=== PATIENT | female | born 1980 | race African-American/Black ===

== ENCOUNTER 2019-06-04 05:18 | Day surgery (SDC) | payer OTHER ==
[2019-06-03 09:20] VITALS: BMI 27.1
[2019-06-04] MEDS ORDERED: BUPIVACAINE HCL/PF 0.5% (5 MG/ML) 30 ML VIAL IJ ONE (12:05)
[2019-06-04] MEDS ORDERED: PROPOFOL 20 ML ONE ×3 (12:28→13:28)
[2019-06-04] MEDS ORDERED: MIDAZOLAM HCL 2 MG/2 ML SINGLE DOSE VIAL ONE ×2 (12:28→13:28)
[2019-06-04] MEDS ORDERED: ROCURONIUM BROMIDE 50 MG/5 ML SYRINGE ONE ×2 (12:30→13:27)
--- NOTE | 2019-06-04 13:17 | HP ---
History & Physical Update - History History: No Change - Physical Physical: No Change - Assessment Assessment: No Change - Plan Plan: No Change (Consent signed and witnessed H&P unchanged from the one in the office)
[2019-06-04] MEDS ORDERED: IBUPROFEN 600 MG TABLET (FP) PO PRN (13:19)
[2019-06-04] MEDS ORDERED: ONDANSETRON 4 MG/2 ML VIAL IVPUSH PRN ×2 (13:19→13:20)
[2019-06-04] MEDS ORDERED: oxyCODONE HCL 5 MG TABLET PO PRN ×3 (13:19→13:20)
[2019-06-04] MEDS ORDERED: IBUPROFEN 800 MG/8 ML IJ IVPB PRN (13:19)
--- NOTE | 2019-06-04 13:19 | OP ---
Operative Note - Note: Operative Date: 06/04/19 Pre-Operative Diagnosis: 38yo P2 multiparity Operation: Laparoscopic Salpingectomy Post-Operative Diagnosis: Same as Pre-op Surgeon: Rebecca Casillas Manager Stone: Haris Frausto Anesthesiologist/BOAT DISPATCHER: Bhumi Thomason Anesthesia: General Specimens Removed: Bilateral fallopian tubes Estimated Blood Loss (mls): 2 Drains, Volume Out (mls): 200 Fluid Volume Replaced (mls): 400 Operative Report Dictated: Yes
[2019-06-04] MEDS ORDERED: SUCCINYLCHOLINE CHLORIDE 200 MG/10 ML SYRINGE ONE (13:27)
[2019-06-04] MEDS ORDERED: EPHEDRINE SULFATE/0.9% NACL/PF 50 MG/10 ML SYRINGE NR ONE (13:27)
[2019-06-04] MEDS ORDERED: fentaNYL CITRATE 250 MCG/5 ML VIAL ONE (13:27)
[2019-06-04] MEDS ORDERED: LACTATED RINGERS SOLUTION 1,000 ML IV SCH (13:30)
[2019-06-04] MEDS ORDERED: ELECTROLYTE-148 SOLN 1,000 ML IV SCH (13:30)
[2019-06-04] MEDS ORDERED: NEOSTIGMINE METHYLSULFATE 0.5 MG/ML - 10 ML MDV ONE (14:24)
--- NOTE | 2019-06-04 15:00 | SURG ---
Surgery Loss Control Manager Note Loss Control Manager: Haris Frausto PA-C Date of Service: 06/04/19 Diagnosis: 38yo P2 multiparity, voluntary sterilization Procedure: Laproscopic salpingectomy I was present for the entirety of the operative procedure. For further detail, please refer to operative report. Visit type - Case Type Case Type: Scheduled - Emergency Emergency Visit: No - New patient This patient is new to me today: Yes Date on this admission: 06/04/19 - Critical Care Critical Care patient: No
[2019-06-04 15:28] VITALS: PULSE 52
[2019-06-04 16:00] VITALS: BP 118/66; TEMP 98
--- NOTE | 2019-06-06 17:22 | PATH ---
Surgical Pathology Report Patient Name: JOEY WE[facility]. Rec. #: [id number] /Age/Gender: 1980 (Age: 38) / F Account: [id number] Location: [facility] SURGICAL Taken: 06/04/2019 Received: 06/05/2019 Reported: 06/06/2019 Physicians: Rebecca Casillas M.D. Specimen(s) Received A: LEFT FALLOPIAN TUBE B: RIGHT FALLOPIAN TUBE Clinical History Problems related to multiparity Final Diagnosis A. LEFT FALLOPIAN TUBE, SALPINGECTOMY: COMPLETE CROSS SECTION OF THE FALLOPIAN TUBE LUMEN IDENTIFIED. B. RIGHT FALLOPIAN TUBE, SALPINGECTOMY: COMPLETE CROSS SECTION OF THE FALLOPIAN TUBE LUMEN IDENTIFIED. Electronically Signed Omar Saucedo M.D. Gross Description A. Received in formalin labeled "left fallopian tube," is a 5 cm in length fimbriated fallopian tube. The outer surface is vega addison and smooth. Sectioning reveals an unremarkable lumen. Manager Workers Compensation sections are submitted in 2 cassettes as follows: 1-fimbria; 2-cross sections of fallopian tube. B. Received in formalin labeled "right fallopian tube, is a 5.5 cm in length fimbriated fallopian tube. The outer surface is ramos purple and smooth. Sectioning reveals an unremarkable lumen. Manager Workers Compensation sections are submitted in 2 cassettes as follows: 1-fimbria; 2-cross sections of fallopian tube. DL/06/05/2019 saudi/06/05/2019
--- NOTE | 2019-06-10 15:53 | OP ---
DATE OF OPERATION: 06/04/2019 PREOPERATIVE DIAGNOSIS: A 38-year-old para 2 with multiparity. NAME OF OPERATION: Laparoscopic bilateral salpingectomy. PREOPERATIVE DIAGNOSIS: A 38-year-old para 2 with multiparity. SURGEON: Rebecca Casillas M.D. LINING LAYER: Haris Frausto PA-C ANESTHESIOLOGIST: Bhumi Thomason M.D. ANESTHESIA: General. DESCRIPTION OF THE OPERATIVE PROCEDURE: After ensuring informed consent, the patient was brought to the operating room, where she was placed in the dorsal lithotomy position. The abdomen and perineum were prepped and draped in sterile fashion. A Hodge catheter was placed sterilely after a time-out was completed. The cervix was visualized with a Corey retractor, and the anterior cervical lip was grasped with a single-tooth tenaculum. The HUMI manipulator was introduced through the cervix and balloon insufflated. All instruments, except for the HUMI, were removed from the vagina. Attention was then brought to the abdomen, where a 5-mm hysteroscope was assembled and white balanced. The patient was placed in a flat position. The table was lowered. A 5-mm umbilical incision was created with a scalpel in the center of the umbilicus and Veress needle was inserted without any difficulty. The normal saline test was completed. Subsequently the abdomen was insufflated with 2 L of CO2 gas. Excellent placement of the Veress needle was noted. The initial intra-abdominal pressure was 2 mmHg. Subsequent to the abdomen being filled with CO2 gas, the Optiview trocar with a 5-mm scope in it was introduced intra-abdominally under direct visualization into the abdomen. All abdominal contents were surveyed and found to be within normal limits. No upper abdominal adhesions were noted. Subsequently right and left lateral ports were created 2 fingerbreadths medial and 2 fingerbreadths above the anterior-superior iliac spine. The 5-mm trocars were introduced under direct visualization through each of the openings. LigaSure was used as the tube was grasped with and found to be normal. The right fallopian tube was dissected off above the ovary and off the mesosalpinx. The area where the tube was from the uterus was sealed with 3 consecutive cauterizations at the cornua of each fallopian tube, so each fallopian tube was off the mesosalpinx without any difficulty and subsequently removed through the 5-mm port. Excellent hemostasis was noted. Tubes were sent to Pathology. The gas was allowed to escape from the abdomen. The ports were removed. The 5-mm openings were closed with 4-0 Monocryl. Estimated blood loss was 3 mL. Urine output was 200 mL. The patient received 400 mL of IV fluids. She tolerated the procedure well. All instruments were removed from the uterus, vagina and abdomen. sponge and instrument counts were correct x2. The patient was brought to the recovery room in stable condition. David [id number]
== END 2019-06-04 17:15 | disposition home or self-care (01) ==
LOC: JASU-SURG 05:18
PROVIDERS: ATTEND Obstetrics & Gynecology
PROC: 0UT7FZZ Resection of Bilateral Fallopian Tubes, Via Natural or Artificial Opening With Percutaneous Endoscopic Assistance (ICD-10-PCS; principal; 2019-06-04 13:00)
DX: Z64.1 Problems related to multiparity (principal)
CPT/HCPCS: 84703; 94760

== ENCOUNTER 2019-10-31 01:16 | Emergency (ER) | payer OTHER ==
[2019-10-31 01:25] VITALS: BP 139/88; PULSE 67; TEMP 97.9; BMI 26.9
--- NOTE | 2019-10-31 01:54 | PDOC ---
Attending Attestation - Resident Resident Name: ClaudiaMarielena - ED Attending Attestation I have performed the following: I have examined & evaluated the patient, The case was reviewed & discussed with the resident, I agree w/resident's findings & plan - HPI HPI: 10/31/19 02:37 see resident hpi - Physicial Exam PE: 10/31/19 02:38 see resident exam - Medical Decision Making 10/31/19 02:38 39-year-old female with 4 weeks of persistent throat pain, hoarseness and difficulty swallowing despite an antibiotic and steroid regimen outpatient Plan for CT with contrast of the neck to rule out abscess versus epiglottitis versus mass Pending results will consult ENT as needed
--- NOTE | 2019-10-31 02:04 | PDOC ---
History of Present Illness - General Chief Complaint: Sore Throat Stated Complaint: SORE THROAT,EARACHE Time Seen by Provider: 10/31/19 01:51 History Source: Patient Exam Limitations: No Limitations - History of Present Illness Initial Comments: 10/31/19 03:34 39y F with no significant PMH presenting to ED with complaints of sore throat x4 weeks. She states she went to an urgent care 3w ago and was given steroids. She went again the week after and was diagnosed with strep and given antibiotics. She went to [facility] last week and was diagnosed with croup due to neck xr show ing swelling of the epiglottis. She was to follow up with ENT but she has not been able to due to the offices being closed due to COVID. She endorses hoarseness at times and pain in her hears and pain radiating from the throat up to the ears. She says she feels like the swelling pushes down on her throat when she lies flat and has more difficulty with breathing when laying flat occasionally. Denies inability to tolerate secretions, sob, stridor, chest pain, fevers, headache, congestion, abdominal pain, n/v/d, joint swelling, rashes, family history of throat cancers. PMD: PMH: none PSH: none Meds: none Allergies: see allergy list Social: denies Past History - Past Medical History Allergies/Adverse Reactions: Allergies Allergy/AdvReac Type Severity Reaction Status Date / Time acetaminophen [From NyQuil] Allergy Intermediate Hives Verified 10/31/19 01:25 dextromethorphan Allergy Intermediate Hives Verified 10/31/19 01:25 [From NyQuil] doxylamine [From NyQuil] Allergy Intermediate Hives Verified 10/31/19 01:25 metoclopramide [From Reglan] Allergy Intermediate Nausea Verified 10/31/19 01:25 pseudoephedrine [From NyQuil] Allergy Intermediate Hives Verified 10/31/19 01:25 Home Medications: Ambulatory Orders Ibuprofen [Motrin -] 600 mg PO QID #28 tablet 06/04/19 Methylprednisolone [Medrol Dose Stiven] 4 mg PO ASDIR #21 tablet 10/31/19 Anemia: No Asthma: No Cancer: No Cardiac Disorders: No CVA: No COPD: No CHF: No Dementia: No Diabetes: No GI Disorders: No Disorders: No HTN: No Hypercholesterolemia: No Liver Disease: No Seizures: No Thyroid Disease: No - Psycho Social/Smoking Cessation Hx Smoking History: Never smoked Have you smoked in the past 12 months: No Information on smoking cessation initiated: No Hx Alcohol Use: No Drug/Substance Use Hx: No Substance Use Type: Alcohol Hx Substance Use Treatment: No Review of Systems - Review of Systems Constitutional: No: Symptoms Reported HEENTM: Yes: See HPI Respiratory: Yes: See HPI Cardiac (ROS): No: Symptoms Reported ABD/GI: No: Symptoms Reported : No: Symptoms Reported Musculoskeletal: No: Symptoms Reported Integumentary: No: Symptoms Reported Neurological: No: Symptoms reported *Physical Exam - Vital Signs Last Vital Signs Temp Pulse Resp BP Pulse Ox 97.9 F 67 17 139/88 100 10/31/19 01:20 10/31/19 01:20 10/31/19 01:20 10/31/19 01:20 10/31/19 01:20 - Physical Exam General Appearance: Yes: Nourished, Appropriately Dressed, Mild Distress HEENT: positive: EOMI, BLANCA, TMs Normal, Pharynx Normal, Muffled/Hoarse voice. negative: Pharyngeal Erythema, Tonsillar Exudate, Tonsillar Erythema, Lesions, Excessive drooling, Thrush Neck: positive: Trachea midline, Supple, Tender midline (anteriorly). negative: Stridor, Rigidity Respiratory/Chest: positive: Lungs Clear, Normal Breath Sounds. negative: Crackles, Rales, Rhonchi, Stridor, Wheezing Cardiovascular: positive: Regular Rhythm, Regular Rate, S1, S2. negative: Edema, JVD, Murmur Gastrointestinal/Abdominal: positive: Soft. negative: Tender Extremity: negative: Swelling Integumentary: positive: Normal Color, Dry, Warm Neurologic: positive: orthodontic treatment coordinator II-XII NML intact, Fully Oriented, Alert, Normal Mood/Affect, Normal Response, Motor Strength 5/5 ED Treatment Course - LABORATORY CBC & Chemistry Diagram: 10/31/19 02:30 10/31/19 02:30 Medical Decision Making - Medical Decision Making 10/31/19 03:39 39y F presenting for 1 month of sore throat. vitals wnl. pt is not dyspneic, is not stridorous, saturating well on RA. ddx includes thyromegaly, rpa, epiglottitis will obtain labs including tsh, bchg CT neck -decadron po and toradol 10/31/19 03:40 labs wnl. normal thyroid levels. no leukocytosis. 10/31/19 04:32 CT: The visualized brain parenchyma is unremarkable. The airways patent.No peritonsillar or retropharyngeal abscess No soft tissue mass or cervical lymphadenopathy. Normal vascular enhancement The lung apices are clear The epiglottis, pharynx, parapharyngeal spaces, and vocal cords are normal. Pt laying down flat in stretcher. discussed in depth with patient about findings. Patient needs to follow up with ENT. will provide referrals. pt states pain will go away some times but then will return a few days later. no sick contacts at home. Stated prednisone helped with the pain. Will prescribe Medrol dose pack. will DC home. Discharge - Discharge Information Problems reviewed: Yes Clinical Impression/Diagnosis: Sore throat Condition: Fair Disposition: HOME - Admission No - Follow up/Referral Referrals: Taj Ramires MD [Primary Care Provider] - Terry Bowling MD [Staff Physician] - Jh Rangel MD [Staff Physician] - - Patient Discharge Instructions Patient Printed Discharge Instructions: Sore Throat Additional Instructions: You were seen in the ER for sore throat. The CT results have been provided to you. I do not know the exact cause of your symptoms but it is not due to an infection. I highly recommend following up with ENT. Referrals are provided below. You can use lozenges to help. A steroid pack has been prescribed, take as directed. Start it on Monday. Come back to the ER if you have difficulty breathing, develop fever, have worsening pain. Thank you - Post Discharge Activity
[2019-10-31] MEDS ORDERED: DEXAMETHASONE SOD PHOSPHATE 10 MG/1 ML VIAL PO ONE (02:05)
[2019-10-31] MEDS ORDERED: CLINDAMYCIN 600MG PREMIX IVPB 600 MG/50 ML BAG IVPB ONE ×2 (02:17→02:30)
[2019-10-31] MEDS ORDERED: KETOROLAC TROMETHAMINE 15 MG/ML VIAL IVPUSH ONE (02:24)
[2019-10-31] MEDS ORDERED: DEXAMETHASONE SOD PHOSPHATE 10 MG/1 ML VIAL ONE (02:29)
[2019-10-31] MEDS ORDERED: KETOROLAC TROMETHAMINE 15 MG/ML VIAL ONE (02:30)
[2019-10-31 02:48] LABS: BASO % 0.7 % (0-2.0); HEMATOCRIT 44.3 % (32.4-45.2); HEMOGLOBIN 14.9 GM/dL (10.7-15.3); LYMPH % 24.7 % (8-40); MCH 30.9 pg (25.7-33.7); MCHC 33.5 g/dl (32.0-36.0); MEAN CELL VOLUME 92.2 fl (80-96); MONO % 9.3 % (3.8-10.2); NEUT % 62.3 % (42.8-82.8); PLATELET COUNT 241 K/MM3 (134-434); RBC 4.81 M/mm3 (3.60-5.2); RDW 13.5 % (11.6-15.6); WHITE BLOOD COUNT 7.8 K/mm3 (4.0-10.0)
[2019-10-31 03:21] LABS: ALBUMIN 3.5 g/dl (3.4-5.0); ALK PHOS 83 U/L (45-117); ANION GAP 6 MMOL/L (8-16); BILIRUBIN,TOTAL 0.3 mg/dL (0.2-1); BLOOD UREA NITROGEN 16.4 mg/dL (7-18); CALCIUM 8.5 mg/dL (8.5-10.1); CHLORIDE 106 mmol/L (98-107); CO2 29 mmol/L (21-32); CREATININE 0.9 mg/dL (0.55-1.3); GLUCOSE,RANDOM 95 mg/dL (74-106); POTASSIUM 4.1 mmol/L (3.5-5.1); SGOT/AST 10 U/L (15-37); SGPT/ALT 13 U/L (13-61); SODIUM 140 mmol/L (136-145); TOT PROT 7.4 g/dl (6.4-8.2)
== END 2019-10-31 05:03 | disposition home or self-care (01) ==
LOC: JER 01:16
PROC: 3E03329 Introduction of Other Anti-infective into Peripheral Vein, Percutaneous Approach (ICD-10-PCS; principal; 2019-10-31)
PROC: 3E0333Z Introduction of Anti-inflammatory into Peripheral Vein, Percutaneous Approach (ICD-10-PCS; 2019-10-31)
DX: J02.9 Acute pharyngitis, unspecified (principal); Z88.8 Allergy status to other drugs, medicaments and biological substances
CPT/HCPCS: 36415; 70491-TC; 80053; 84439; 84443; 84702; 85025; 99285-25; J1100; Q9967

== ENCOUNTER 2021-11-04 19:19 | Emergency (ER) | payer OTHER ==
[2021-11-04 19:48] VITALS: BP 118/79; PULSE 80; TEMP 97.7; BMI 26.7
[2021-11-04] MEDS ORDERED: PANTOPRAZOLE SODIUM 40 MG VIAL IVPB ONE (21:06)
[2021-11-04] MEDS ORDERED: KETOROLAC TROMETHAMINE 30 MG/1 ML VIAL IVPUSH ONE (21:06)
[2021-11-04] MEDS ORDERED: DICYCLOMINE HCL 20 MG TABLET PO ONE (21:06)
[2021-11-04] MEDS ORDERED: SODIUM CHLORIDE 1,000 ML IV STA (21:06)
[2021-11-04] MEDS ORDERED: ONDANSETRON 4 MG/2 ML VIAL IVPUSH ONE (21:06)
[2021-11-04] MEDS ORDERED: MAG HYDROX/AL HYDROX/SIMETH 30 ML UNIT-DOSE CUP PO ONE (21:07)
[2021-11-04] MEDS ORDERED: MAG HYDROX/AL HYDROX/SIMETH 30 ML UNIT-DOSE CUP ONE (21:31)
[2021-11-04] MEDS ORDERED: ONDANSETRON 4 MG/2 ML VIAL ONE (21:31)
[2021-11-04] MEDS ORDERED: DICYCLOMINE HCL 10 MG CAPSULE ONE (21:31)
[2021-11-04] MEDS ORDERED: PANTOPRAZOLE SODIUM 40 MG/100 ML BAG IVPB ONE (21:31)
[2021-11-04] MEDS ORDERED: KETOROLAC TROMETHAMINE 30 MG/1 ML VIAL ONE (21:31)
[2021-11-04 22:12] LABS: HEMATOCRIT 45.9 % (32.4-45.2); HEMOGLOBIN 15.7 GM/dL (10.7-15.3); MCH 30.6 pg (25.7-33.7); MCHC 34.2 g/dl (32.0-36.0); MEAN CELL VOLUME 89.4 fl (80-96); MEAN PLT VOLUME 9.3 fl (7.5-11.1); PLATELET COUNT 189 10^3/uL (134-434); RBC 5.13 M/mm3 (3.60-5.2); RDW 12.7 % (11.6-15.6)
[2021-11-04 22:35] LABS: CALCIUM 9.1 mg/dL (8.5-10.1)
[2021-11-04 22:36] LABS: ALBUMIN 4.2 g/dl (3.4-5.0)
[2021-11-04 22:39] LABS: CREATININE 0.8 mg/dL (0.55-1.3)
[2021-11-04 22:40] LABS: BILIRUBIN,TOTAL 0.6 mg/dL (0.2-1); TOT PROT 7.8 g/dl (6.4-8.2)
[2021-11-04 23:00] LABS: ANISOCYTOSIS 0; MACROCYTOSIS 0; PLATELET ESTIMATE NORMAL
== END 2021-11-05 01:57 | disposition home or self-care (01) ==
LOC: JER 19:19
DX: K29.00 Acute gastritis without bleeding (principal)
CPT/HCPCS: 36415; 76705-TC; 80053; 83690; 84703; 85025; 99284-25

== ENCOUNTER 2023-08-22 04:51 | Day surgery (SDC) | payer OTHER ==
[2023-08-17 08:39] VITALS: BMI 27.1
[2023-08-22] MEDS ORDERED: LIDOCAINE HCL/PF 2% SDV 5ML VIAL ONE (07:59)
[2023-08-22] MEDS ORDERED: PROPOFOL 20 ML ONE (08:00)
[2023-08-22] MEDS ORDERED: MIDAZOLAM HCL 2 MG/2 ML SINGLE DOSE VIAL ONE (08:02)
[2023-08-22] MEDS ORDERED: oxyCODONE HCL 5 MG TABLET PO PRN ×3 (08:37→09:55)
[2023-08-22] MEDS ORDERED: IBUPROFEN 800 MG/8 ML IJ IVPB PRN (08:37)
[2023-08-22] MEDS ORDERED: ONDANSETRON 4 MG/2 ML VIAL IVPUSH PRN (08:37)
[2023-08-22] MEDS ORDERED: IBUPROFEN 600 MG TABLET (FP) PO PRN (08:37)
[2023-08-22] MEDS ORDERED: ELECTROLYTE-148 SOLN 1,000 ML IV SCH (08:45)
[2023-08-22] MEDS ORDERED: ONDANSETRON 4 MG/2 ML VIAL ONE (08:57)
[2023-08-22] MEDS ORDERED: DEXAMETHASONE SOD PHOSPHATE 4 MG/1 ML VIAL ONE (08:57)
[2023-08-22] MEDS ORDERED: KETOROLAC TROMETHAMINE 30 MG/1 ML VIAL ONE (08:57)
[2023-08-22] MEDS ORDERED: PROMETHAZINE HCL 25 MG/1 ML VIAL IVPB PRN (09:55)
[2023-08-22] MEDS ORDERED: ACETAMINOPHEN 1000 MG/100 ML BAG IVPB ONE ×2 (09:56→10:01)
[2023-08-22] MEDS ORDERED: LACTATED RINGERS SOLUTION 1,000 ML IV SCH (10:00)
[2023-08-22] MEDS ORDERED: HYDROmorphone HCl 2 MG/ML VIAL ONE (11:04)
[2023-08-22] MEDS ORDERED: HYDROmorphone HCl 2 MG/ML VIAL IVPUSH ONE (11:06)
[2023-08-22] MEDS ORDERED: HYDROmorphone HCl 2 MG/ML VIAL IVPUSH PRN (11:16)
[2023-08-22] MEDS ORDERED: oxyCODONE HCL 5 MG TABLET ONE (11:46)
[2023-08-22 13:25] VITALS: BP 138/85; PULSE 56; TEMP 97.4
[2023-08-22 13:38] VITALS: RESP 18
== END 2023-08-22 13:39 | disposition home or self-care (01) ==
LOC: JASU-SURG 04:51
PROVIDERS: ATTEND Obstetrics & Gynecology
PROC: 0U5B8ZZ Destruction of Endometrium, Via Natural or Artificial Opening Endoscopic (ICD-10-PCS; principal; 2023-08-22 08:30)
DX: N93.9 Abnormal uterine and vaginal bleeding, unspecified (principal)
CPT/HCPCS: 81025; 94760